=== PATIENT | male | born 1970 | race American Indian/Alaskan Native ===

== ENCOUNTER 2016-10-31 12:43 | Emergency (ER) | payer SELFPAY | END 2016-10-31 15:50 | disposition left against medical advice (07) | LOC: ED 12:43 | DX: M79.89 Other specified soft tissue disorders (principal); Z53.21 Procedure and treatment not carried out due to patient leaving prior to being seen by health care provider ==

== ENCOUNTER 2018-08-22 18:07 | Emergency (ER) | payer SELFPAY ==
--- NOTE | 2018-08-22 18:20 | Emergency Department Report ---
Blank Doc - Documentation Documentation: This is a 48-year-old male that presents with right earache, neck pain and lower back pain. Exam: earwax buildup, unable to visual TMs This initial assessment/diagnostic orders/clinical plan/treatment(s) is/are subject to change based on patient's health status, clinical progression and re- assessment by fellow clinical providers in the ED. Further treatment and workup at subsequent clinical providers discretion. Patient/guardians urged not to elope from the ED as their condition may be serious if not clinically assessed and managed. Initial orders include: 1- Patient sent to [facility] for further evaluation and treatment
[2018-08-22 21:05] VITALS: BP 130/66
== END 2018-08-22 22:00 | disposition left against medical advice (07) ==
LOC: ED 18:07
DX: M54.2 Cervicalgia (principal); M54.5 Low back pain; Z53.21 Procedure and treatment not carried out due to patient leaving prior to being seen by health care provider